=== PATIENT | female | born 1995 | race African-American/Black ===

== ENCOUNTER 2017-02-12 17:42 | Emergency (ER) | payer OTHER ==
[~2017-02-12] VITALS: Ht 167.6 cm; Wt 59.9 kg
[2017-02-12 18:05] VITALS: BP 121/80
== END 2017-02-12 19:38 | disposition home or self-care (01) ==
LOC: ER 17:42
DX: I95.1 Orthostatic hypotension (principal); E86.0 Dehydration; Z88.5 Allergy status to narcotic agent